=== PATIENT | male | born 1990 | race Caucasian/White ===

== ENCOUNTER 2024-10-17 17:12 | Emergency (ER) | payer OTHER ==
[~2024-10-17] VITALS: Ht 185.4 cm; Wt 75.0 kg
[2024-10-17 17:19] VITALS: BP 94/52; PULSE 77; RESP 20; TEMP 98.5; O2SAT 100
[2024-10-17] MEDS ORDERED: GABA-1216 PO (17:23)
[2024-10-17] MEDS ORDERED: FAMO20 PO (17:23)
[2024-10-17] MEDS ORDERED: IBUP-1492 PO (19:35)
[2024-10-17] MEDS ORDERED: ACET-3385 PO (19:35)
[2024-10-17] MEDS: IBUPROFEN 600 MG TABLET PO ONE (20:00)
== END 2024-10-17 20:19 | disposition home or self-care (01) ==
LOC: EMS 17:12
DX: S93.401A Sprain of unspecified ligament of right ankle, initial encounter (principal); K21.9 Gastro-esophageal reflux disease without esophagitis; F12.90 Cannabis use, unspecified, uncomplicated; F17.210 Nicotine dependence, cigarettes, uncomplicated; X50.1XXA Overexertion from prolonged static or awkward postures, initial encounter; Y93.66 Activity, soccer; Y92.89 Other specified places as the place of occurrence of the external cause; Y99.8 Other external cause status
CPT/HCPCS: 99283